=== PATIENT | female | born 1975 | race Caucasian/White ===

== ENCOUNTER 2016-10-17 11:51 | Emergency (ER) | payer OTHER ==
--- NOTE | ~2016-10-17 | ER ---
PATIENT'S NAME: YEN SALVADOR [facility] AGE: 41 Y [address] ROOM: [place] [address] LOCATION: [facility] ADMIT DATE: 10/17/2016 ER/Outpatient Report DISCHARGE DATE: 10/17/2016 FAMILY PHYSICIAN: Forrest Kim MD ATTENDING PHYSICIAN: Kathleen Munoz TIME OF ARRIVAL: 12:04. TIME OF EXAM: 12:04. CHIEF COMPLAINT: Left low back pain. HISTORY OF PRESENT ILLNESS: The patient states she has had urinary type symptoms for the past 2 weeks. However, she has developed left flank pain that radiates around into the left groin area over the past 2 days. It is getting worse instead of better. She is having difficulty urinating. Because of the pain, having urinating in small amounts. She states she is nauseated. Did vomit this morning. She did have normal soft bowel movement this morning. Has not noticed any blood in her urine or her stool. ALLERGIES: PERCOCET. CURRENT MEDICATIONS: On the chart and reviewed by me. PAST MEDICAL HISTORY: Anxiety. Did have kidney stones approximately 20 years ago. PAST SURGICAL HISTORY: Right shoulder surgery, hysterectomy, tonsils, and adenoids, and appendectomy. SOCIAL HISTORY: Smokes half pack per day and has for the past 20 years. Denies use of drugs and alcohol. REVIEW OF SYSTEMS: All negative other than those mentioned in the HPI. PHYSICAL EXAMINATION: VITAL SIGNS: She weighed 73.7 kg. Blood pressure is 141/80, pulse is 72, PATIENT'S NAME: YEN SALVADOR [facility] AGE: 41 Y [address] ROOM: [place] [address] LOCATION: [facility] ADMIT DATE: 10/17/2016 ER/Outpatient Report DISCHARGE DATE: 10/17/2016 FAMILY PHYSICIAN: Forrest Kim MD ATTENDING PHYSICIAN: Kathleen Munoz respirations 24, temperature of 97.7 tympanic, and O2 saturation was 98% on room air. GENERAL: She is awake, alert, and oriented x4. SKIN: [place], warm, and dry. RESPIRATIONS: Even and nonlabored. LUNGS: Sounds were clear throughout. HEART: Regular rate and rhythm. ABDOMEN: Soft and nondistended. Bowel sounds are present. She does have tenderness in the left flank area. No abdominal pain with deep palpation. NEUROLOGIC: She walked in with a steady even gait. Moves all extremities strongly and equally. EMERGENCY ROOM COURSE: A saline lock was initiated. Fluids of normal saline were started at a wide- open rate. She was given Zofran 4 mg IV and Toradol 30 mg IV. Clean-catch UA was obtained, was positive for blood, otherwise negative. CBC showed a white count of 11.4. Chem panel is within normal limits. CT scan, stone protocol was obtained and radiologist reports patient has a moderate obstructing 3 x 5 stone in the left UVJ. The patient reports her pain is relieved with the Toradol and the patient was reviewed with Dr. Munoz. IMPRESSION: Renal calculi, left. PLAN: Home, rest. Increase her fluids. Prescription was written for Flomax, [place], and Zofran. She is to follow up with her primary provider in the next 2 or 3 days if symptoms persist or worsen. She verbalized understanding. BRADEN ALBERTO APRN FOR MD LATOYA BERNAL/lavelle /[id number] d: 10/17/161938 t: 10/20/16704, OUTPATIENT REPORT
[2016-10-17 12:17] LABS: BASOPHIL # 0.1 K/uL (0.0-0.2); BASOPHIL % 0.6 %; EOSINOPHIL # 0.1 K/uL (0.0-0.5); EOSINOPHIL % 0.8 %; HEMATOCRIT 49.5 % (33.0-46.0); HEMOGLOBIN 17.4 g/dL (10.0-15.0); IMMATURE GRANULOCYTE # 0.1 K/uL (0.0-0.3); IMMATURE GRANULOCYTE % 0.4 %; LYMPHOCYTE # 2.9 K/uL (0.8-4.0); LYMPHOCYTE % 25.2 %; MCH 31.9 pg (27.0-34.0); MCHC 35.2 gm/dL (32.0-36.5); MCV 90.8 fl (83.0-98.0); MONOCYTE # 0.6 K/uL (0.0-1.0); MONOCYTE % 5.5 %; MPV 10.9 fl (9.4-12.4); NEUTROPHIL # (ANC) 7.7 K/uL (1.8-7.8); NEUTROPHIL % 67.5 %; NRBC % 0 /100WBC (0-0.00); PLATELET COUNT 202 K/uL (150-450); RBC 5.45 M/uL (3.50-5.50); WBC 11.4 K/uL (4.0-11.0)
[2016-10-17 12:26] LABS: BILIRUBIN URINE NEGATIVE (NEGATIVE); BLOOD URINE 50 /UL (NEGATIVE); COLOR URINE YELLOW (YELLOW); GLUCOSE URINE NEGATIVE (NEGATIVE); KETONE URINE NEGATIVE (NEGATIVE); LEUKOCYTES URINE NEGATIVE /UL (NEGATIVE); NITRITE URINE NEGATIVE (NEGATIVE); PROTEIN URINE NEGATIVE (NEGATIVE); SPEC GRAVITY URINE 1.005 (1.003-1.035); TURBIDITY URINE CLEAR (CLEAR); UROBILINOGEN URINE NORMAL (NORMAL)
[2016-10-17 12:35] LABS: BACTERIA URINE RARE (NEGATIVE); RBC URINE RARE #/HPF (NEGATIVE); WBC URINE RARE #/HPF (NEGATIVE)
[2016-10-17 12:37] LABS: CREATININE 0.9 mg/dL (0.5-1.1); TOTAL BILIRUBIN 1.5 mg/dL (0.0-1.5); TOTAL PROTEIN 7.7 g/dL (6.0-8.4)
== END 2016-10-17 13:15 | disposition disaster alternative care site (69) ==
LOC: GMED 11:51
PROVIDERS: Nurse Practitioner Family
DX: N13.2 Hydronephrosis with renal and ureteral calculous obstruction (principal); F41.9 Anxiety disorder, unspecified; F17.210 Nicotine dependence, cigarettes, uncomplicated; Z88.5 Allergy status to narcotic agent; Z90.710 Acquired absence of both cervix and uterus; Z90.49 Acquired absence of other specified parts of digestive tract; Z90.89 Acquired absence of other organs; Z79.899 Other long term (current) drug therapy; Z98.890 Other specified postprocedural states
CPT/HCPCS: J1885; J2405; J7030